=== PATIENT | female | born 2000 | race Two or more races ===

== ENCOUNTER 2023-01-04 08:11 | Outpatient (CLI) | payer OTHER | END 2023-01-04 08:36 | disposition home or self-care (01) | LOC: PRENATAL 08:11 | PROVIDERS: ATTEND Obstetrics & Gynecology Maternal & Fetal Medicine | DX: O35.9XX0 Maternal care for (suspected) fetal abnormality and damage, unspecified, not applicable or unspecified (principal); O35.3XX0 Maternal care for (suspected) damage to fetus from viral disease in mother, not applicable or unspecified; O44.00 Complete placenta previa NOS or without hemorrhage, unspecified trimester; Z3A.19 19 weeks gestation of pregnancy ==

== ENCOUNTER 2023-03-31 09:23 | Outpatient (CLI) | payer OTHER | END 2023-03-31 09:24 | disposition home or self-care (01) | LOC: PRENATAL 09:23 | PROVIDERS: ATTEND Obstetrics & Gynecology Maternal & Fetal Medicine | DX: O26.849 Uterine size-date discrepancy, unspecified trimester (principal); O36.8199 Decreased fetal movements, unspecified trimester, other fetus; O34.219 Maternal care for unspecified type scar from previous cesarean delivery; Z3A.37 37 weeks gestation of pregnancy ==

== ENCOUNTER 2024-05-08 20:20 | Emergency (ER) | payer OTHER ==
[~2024-05-08] VITALS: Ht 170.2 cm; Wt 63.5 kg
[2024-05-08 21:59] LABS: HEMATOCRIT 35.9 % (36.0-45.00); HEMOGLOBIN 11.4 g/dL (12.0-15.00); MEAN CELL VOLUME 72.8 fL (80.00-100.00); MEAN CORPUSCULAR HEMOGLOBIN 23.1 pg (27.00-32.0); MEAN CORPUSCULAR HGB CONC 31.7 g/dl (32.0-36.0); PLATELET COUNT 241 K/uL (150-450); RED BLOOD COUNT 4.93 M/uL (4.00-6.00); RED CELL DISTRIBUTION WIDTH 16.2 % (11.5-14.5)
[2024-05-08 23:06] LABS: PH,URINE 5.5 (5.0-8.0); URINE APPEARANCE Cloudy; URINE BILIRRUBIN Negative (NEGATIVE); URINE BLOOD Large; URINE COLOR Dark Yellow; URINE GLUCOSE Negative (NEGATIVE); URINE LEUKOCYTE Trace; URINE NITRATE Negative
[2024-05-08 23:10] LABS: URINE EPITHELIAL CELLS 13.9 uL (0.0-38.8); URINE RBC 7629.2 uL (0.0-20.8); URINE WBC 15.3 uL (0.0-23.2)
[2024-05-08 23:11] LABS: URINE CAST 0.14 uL (0.0-1.40); URINE KETONE 40 (NEGATIVE); URINE PROTEIN 100 (NEGATIVE)
== END 2024-05-09 00:01 | disposition home or self-care (01) ==
LOC: ER 20:23
PROVIDERS: General Practice
DX: O20.8 Other hemorrhage in early pregnancy (principal); Z3A.01 Less than 8 weeks gestation of pregnancy